=== PATIENT | female | born 1960 | race Caucasian/White ===

== ENCOUNTER 2024-03-24 08:42 | Inpatient (IN) | payer MEDICARE, MEDICAID ==
[~2024-03-24] VITALS: Ht 162.6 cm; Wt 141.6 kg
[2024-03-24 10:09] LABS: BASOPHILS % (AUTO) 0.5 % (0-1); EOSINOPHILS # (AUTO) 0.2 X10'3 (0-0.9); EOSINOPHILS % (AUTO) 1.9 % (0-6); HEMOGLOBIN 8.3 g/dl (12.0-16.0); LYMPHOCYTES # (AUTO) 1.9 X10'3 (1.1-4.8); LYMPHOCYTES % (AUTO) 22.7 % (21-51); MEAN CORPUSCULAR HGB CONC 30.7 g/dL (33.0-36.5); MEAN CORPUSCULAR VOLUME 81.4 FL (78-98); MEAN PLATELET VOLUME 8.3 FL (7.4-10.4); MONOCYTES # (AUTO) 0.6 X10'3 (0-0.9); MONOCYTES % (AUTO) 7.3 % (2-12); NEUTROPHILS # (AUTO) 5.7 X10'3 (1.8-7.7); NEUTROPHILS % (AUTO) 67.6 % (42-75); PLATELET COUNT 205 X10'3 (140-440); RED BLOOD COUNT 3.32 X10'6 (4.20-5.60); RED CELL DISTRIBUTION WIDTH 24.9 % (11.5-14.5); WHITE BLOOD COUNT 8.5 X10'3 (4.5-11.0)
[2024-03-24 10:23] LABS: HYPOCHROMASIA 1+; PLATELET ESTIMATE NORMAL
[2024-03-24 10:24] LABS: ANISOCYTOSIS 3+; POLYCHROMASIA 1+; TEAR DROP CELLS FEW
[2024-03-24 10:25] LABS: ELLIPTOCYTES 1+; SCHISTOCYTES FEW; STOMATOCYTES 1+
[2024-03-24 10:38] LABS: APTT 25 SECONDS (22-32); D-DIMER 0.99 MG/L FEU (0-0.50); INR 1.2 INR; PROTHROMBIN TIME 12.7 SECONDS (9.0-12.0)
[2024-03-24 10:47] LABS: ALBUMIN 2.3 G/DL (3.4-5.0); ANION GAP 9 (8-16); BLOOD UREA NITROGEN 13 MG/DL (7-18); BUN/CREATININE RATIO 10.9 (10.0-20.0); CALCIUM 7.5 MG/DL (8.5-10.1); CHLORIDE 105 MMOL/L (99-107); CREATININE 1.19 MG/DL (0.40-0.90); GLUCOSE 158 MG/DL (70-104); MAGNESIUM 1.6 MG/DL (1.5-2.4); PRO BRAIN NATRIURETIC PEPTIDE 1274 PG/ML (0-125); SODIUM 138 MMOL/L (135-145); TOTAL CARBON DIOXIDE 24.1 MMOL/L (24-32); eCRCL 40 ML/MIN; eGFR 45 ML/MIN
[2024-03-24] MEDS: potassium bicarbonate/cit acid 25mEq tablet.effervescent PO ONE (12:06)
[2024-03-24] MEDS ORDERED: tranexamic acid inj. 1,000 MG in normal saline 100ml IV soln 90 ML IV ONE (12:10)
[2024-03-24] MEDS: tranexamic acid 1gm/0.7% sal. 100 ML IV ONE (13:32)
[2024-03-24] MEDS: magnesium sulf-water 2g/50mL 50 ML IV ONE (13:32)
[2024-03-24 14:06] LABS: HEMATOCRIT 26.9 % (35.0-45.0); HEMOGLOBIN 8.2 g/dl (12.0-16.0); MEAN CORPUSCULAR HEMOGLOBIN 25.4 PG (27.0-31.0); MEAN CORPUSCULAR HGB CONC 30.6 g/dL (33.0-36.5); MEAN PLATELET VOLUME 8.6 FL (7.4-10.4); PLATELET COUNT 214 X10'3 (140-440); RED BLOOD COUNT 3.24 X10'6 (4.20-5.60); RED CELL DISTRIBUTION WIDTH 24.9 % (11.5-14.5); WHITE BLOOD COUNT 9.2 X10'3 (4.5-11.0)
[2024-03-24] MEDS: ipratropium/albuterol 3ml nebule NEB ONE (14:40)
[2024-03-24 14:41] VITALS: PULSE 89; RESP 20; O2SAT 99
[2024-03-24 14:47] VITALS: PULSE 91; RESP 20; O2SAT 100
[2024-03-24] MEDS: methylPREDNISolone sod succ 125mg/2ml vial IV ONE (15:43)
[2024-03-24] MEDS ORDERED: acetaminophen 325mg tablet PO PRN (16:15)
[2024-03-24] MEDS ORDERED: mag hydrox/Alum hydrox/simeth 30ml oral suspension PO PRN (16:15)
[2024-03-24] MEDS ORDERED: magnesium hydroxide 30ml (MOM) UD suspension PO PRN (16:15)
[2024-03-24] MEDS ORDERED: ondansetron/PF 4mg/2ml inj IV PRN (16:15)
[2024-03-24] MEDS: doxycycline inj 100 MG in normal saline 100ml IV soln 100 ML IV ONE (16:32)
[2024-03-24] MEDS: docusate sod 100mg capsule PO SCH (19:35)
[2024-03-24 22:11] VITALS: PULSE 89; RESP 21; O2SAT 96
[2024-03-25] VITALS (8 sets, daily range): BP systolic 134–160; BP diastolic 54–68; PULSE 80–104; RESP 16–33; TEMP 97; O2SAT 94–99
[2024-03-25] MEDS ORDERED: CHOL500050 PO (01:40)
[2024-03-25] MEDS ORDERED: FERR325T29 PO (01:40)
[2024-03-25] MEDS ORDERED: POTA-207 PO (01:40)
[2024-03-25] MEDS ORDERED: METF-438 PO (01:40)
[2024-03-25] MEDS ORDERED: NITR0.4T48 SL (01:40)
[2024-03-25] MEDS ORDERED: SERT-434 PO (01:40)
[2024-03-25] MEDS ORDERED: FURO40TA4 PO (01:40)
[2024-03-25] MEDS ORDERED: PRAV20TA4 PO (01:40)
[2024-03-25] MEDS ORDERED: BIMA2.5D EACHEYE (01:40)
[2024-03-25] MEDS ORDERED: METO50TA16 PO (01:40)
[2024-03-25] MEDS ORDERED: AMLO-708 PO (01:40)
[2024-03-25] MEDS ORDERED: DOCU100C40 PO (01:40)
[2024-03-25] MEDS ORDERED: LOSA100T58 PO (01:40)
[2024-03-25] MEDS ORDERED: CYAN500T71 (01:46)
[2024-03-25] MEDS ORDERED: OMEG-270 PO (01:46)
[2024-03-25] MEDS ORDERED: FOLI1TAB27 PO (01:46)
[2024-03-25] MEDS ORDERED: DICL20GE (01:46)
[2024-03-25] MEDS ORDERED: PANT40TA54 PO (01:46)
[2024-03-25] MEDS ORDERED: LANTUS SQ (01:48)
[2024-03-25 02:28] LABS: BASOPHILS % (AUTO) 0.1 % (0-1); EOSINOPHILS % (AUTO) 0 % (0-6); HEMATOCRIT 26.4 % (35.0-45.0); LYMPHOCYTES # (AUTO) 0.7 X10'3 (1.1-4.8); LYMPHOCYTES % (AUTO) 7.2 % (21-51); MEAN CORPUSCULAR HEMOGLOBIN 24.8 PG (27.0-31.0); MEAN CORPUSCULAR HGB CONC 30.4 g/dL (33.0-36.5); MEAN CORPUSCULAR VOLUME 81.8 FL (78-98); MEAN PLATELET VOLUME 8.4 FL (7.4-10.4); MONOCYTES # (AUTO) 0.2 X10'3 (0-0.9); MONOCYTES % (AUTO) 2.6 % (2-12); NEUTROPHILS # (AUTO) 8.5 X10'3 (1.8-7.7); NEUTROPHILS % (AUTO) 90.1 % (42-75); PLATELET COUNT 270 X10'3 (140-440); RED BLOOD COUNT 3.22 X10'6 (4.20-5.60); RED CELL DISTRIBUTION WIDTH 24.7 % (11.5-14.5); WHITE BLOOD COUNT 9.4 X10'3 (4.5-11.0)
[2024-03-25 02:46] LABS: ALBUMIN 2.3 G/DL (3.4-5.0); ANION GAP 10 (8-16); BLOOD UREA NITROGEN 16 MG/DL (7-18); BUN/CREATININE RATIO 14.5 (10.0-20.0); CALCIUM 7.4 MG/DL (8.5-10.1); CHLORIDE 102 MMOL/L (99-107); GLUCOSE 283 MG/DL (70-104); POTASSIUM 3.9 MMOL/L (3.5-5.1); SODIUM 135 MMOL/L (135-145); TOTAL CARBON DIOXIDE 22.6 MMOL/L (24-32); eCRCL 43 ML/MIN; eGFR 50 ML/MIN
[2024-03-25] MEDS: acetaminophen 325mg tablet PO PRN (09:01)
[2024-03-25] MEDS ORDERED: furosemide 40mg tablet PO SCH (11:50)
[2024-03-25] MEDS ORDERED: docusate sod 100mg capsule PO PRN (11:50)
[2024-03-25] MEDS ORDERED: nitroGLYCERIN 0.4mg SUBLingual tab SL PRN (11:50)
[2024-03-25] MEDS: traMADol 50MG tablet PO PRN ×2 (12:12→17:34)
[2024-03-25] MEDS: traMADol 50MG tablet PO ONE (13:31)
[2024-03-25 14:35] LABS: BASOPHILS % (AUTO) 0.1 % (0-1); EOSINOPHILS % (AUTO) 0 % (0-6); HEMOGLOBIN 8.3 g/dl (12.0-16.0); LYMPHOCYTES # (AUTO) 1.5 X10'3 (1.1-4.8); MEAN CORPUSCULAR HEMOGLOBIN 24.9 PG (27.0-31.0); MEAN CORPUSCULAR HGB CONC 30.7 g/dL (33.0-36.5); MEAN CORPUSCULAR VOLUME 81.1 FL (78-98); MEAN PLATELET VOLUME 8.1 FL (7.4-10.4); MONOCYTES # (AUTO) 1.7 X10'3 (0-0.9); NEUTROPHILS # (AUTO) 13.9 X10'3 (1.8-7.7); NEUTROPHILS % (AUTO) 80.9 % (42-75); PLATELET COUNT 341 X10'3 (140-440); RED BLOOD COUNT 3.32 X10'6 (4.20-5.60); RED CELL DISTRIBUTION WIDTH 24.6 % (11.5-14.5); WHITE BLOOD COUNT 17.2 X10'3 (4.5-11.0)
[2024-03-25 14:55] LABS: PLATELET ESTIMATE NORMAL
[2024-03-25 14:56] LABS: ANISOCYTOSIS 3+; ELLIPTOCYTES 1+; HYPOCHROMASIA 1+; STOMATOCYTES FEW
[2024-03-25 14:57] LABS: SCHISTOCYTES FEW
[2024-03-25] MEDS ORDERED: ipratropium/albuterol 3ml nebule NEB PRN (18:10)
[2024-03-25] MEDS: OMEGA-3/DHA/EPA/FISH OIL 1 EACH CAPSULE.DR PO SCH (20:35)
[2024-03-25] MEDS: pantoprazole 40mg Tablet.DR PO SCH (20:36)
[2024-03-25] MEDS: ferrous sulfate 325mg tablet PO SCH (20:36)
[2024-03-25] MEDS: metoprolol tartrate 50mg tablet PO SCH (20:36)
[2024-03-25] MEDS: guaiFENesin ER 600mg tablet PO SCH (20:36)
[2024-03-25] MEDS: insulin glargine (Lantus) pen - multi-dose SQ SCH (22:39)
[2024-03-26] VITALS (12 sets, daily range): BP systolic 98–150; BP diastolic 46–68; PULSE 82–104; RESP 14–24; TEMP 96.8–97.9; O2SAT 91–98
[2024-03-26 06:06] LABS: BASOPHILS % (AUTO) 0.2 % (0-1); EOSINOPHILS # (AUTO) 0.1 X10'3 (0-0.9); EOSINOPHILS % (AUTO) 0.5 % (0-6); HEMATOCRIT 25.2 % (35.0-45.0); HEMOGLOBIN 7.7 g/dl (12.0-16.0); LYMPHOCYTES # (AUTO) 1.2 X10'3 (1.1-4.8); LYMPHOCYTES % (AUTO) 9.5 % (21-51); MEAN CORPUSCULAR HGB CONC 30.5 g/dL (33.0-36.5); MONOCYTES % (AUTO) 8.2 % (2-12); NEUTROPHILS # (AUTO) 10.2 X10'3 (1.8-7.7); NEUTROPHILS % (AUTO) 81.6 % (42-75); PLATELET COUNT 305 X10'3 (140-440); RED BLOOD COUNT 3.08 X10'6 (4.20-5.60); RED CELL DISTRIBUTION WIDTH 24.6 % (11.5-14.5); WHITE BLOOD COUNT 12.6 X10'3 (4.5-11.0)
[2024-03-26 06:22] LABS: ALBUMIN 2.2 G/DL (3.4-5.0); ANION GAP 10 (8-16); BLOOD UREA NITROGEN 21 MG/DL (7-18); BUN/CREATININE RATIO 18.4 (10.0-20.0); CHLORIDE 104 MMOL/L (99-107); CREATININE 1.14 MG/DL (0.40-0.90); GLUCOSE 138 MG/DL (70-104); POTASSIUM 3.4 MMOL/L (3.5-5.1); SODIUM 139 MMOL/L (135-145); TOTAL CARBON DIOXIDE 25.4 MMOL/L (24-32); eCRCL 42 ML/MIN; eGFR 48 ML/MIN
[2024-03-26] MEDS: EYE EACHEYE SCH (08:00)
[2024-03-26] MEDS: BIMATOPROST EACHEYE SCH (08:00)
[2024-03-26] MEDS: furosemide 40mg/4ml inj IV ONE (08:20)
[2024-03-26] MEDS: losartan 50mg tablet PO SCH (08:24)
[2024-03-26] MEDS: potassium Cl 20 mEq SR tablet PO SCH (08:25)
[2024-03-26] MEDS: folic acid 1mg tablet PO SCH (08:25)
[2024-03-26] MEDS: atorvastatin 10mg tablet PO SCH (08:26)
[2024-03-26] MEDS: amLODIPine 5mg tablet PO SCH (08:27)
[2024-03-26] MEDS: cholecalciferol (vitamin D3) 1,000 unit (25mcg) tablet PO SCH (08:27)
[2024-03-26] MEDS: sertraline 50mg tablet PO SCH (08:28)
[2024-03-26] MEDS: insulin glargine (Lantus) pen - multi-dose SQ ONE (09:24)
[2024-03-26] MEDS: lactose-reduced food (Ensure Enlive) - 237ml bottle PO SCH (13:00)
[2024-03-26 14:47] LABS: BASOPHILS % (AUTO) 0.2 % (0-1); EOSINOPHILS # (AUTO) 0.1 X10'3 (0-0.9); EOSINOPHILS % (AUTO) 0.7 % (0-6); HEMATOCRIT 26.7 % (35.0-45.0); HEMOGLOBIN 8.1 g/dl (12.0-16.0); LYMPHOCYTES # (AUTO) 1.6 X10'3 (1.1-4.8); LYMPHOCYTES % (AUTO) 9.5 % (21-51); MEAN CORPUSCULAR HEMOGLOBIN 24.7 PG (27.0-31.0); MEAN CORPUSCULAR HGB CONC 30.5 g/dL (33.0-36.5); MEAN CORPUSCULAR VOLUME 81.1 FL (78-98); MONOCYTES # (AUTO) 1.2 X10'3 (0-0.9); MONOCYTES % (AUTO) 7.6 % (2-12); NEUTROPHILS # (AUTO) 13.5 X10'3 (1.8-7.7); PLATELET COUNT 381 X10'3 (140-440); RED BLOOD COUNT 3.29 X10'6 (4.20-5.60); RED CELL DISTRIBUTION WIDTH 25.6 % (11.5-14.5); WHITE BLOOD COUNT 16.4 X10'3 (4.5-11.0)
[2024-03-26 15:07] LABS: ANISOCYTOSIS 3+; ELLIPTOCYTES FEW; MICROCYTOSIS 1+; PLATELET ESTIMATE NORMAL; POIKILOCYTOSIS FEW; TARGET CELLS FEW
[2024-03-27] VITALS (15 sets, daily range): BP systolic 93–136; BP diastolic 41–62; PULSE 75–94; RESP 14–22; TEMP 97.3–98.1; O2SAT 93–100
[2024-03-27 07:43] LABS: BASOPHILS % (AUTO) 0.4 % (0-1); EOSINOPHILS # (AUTO) 0.2 X10'3 (0-0.9); HEMOGLOBIN 7.8 g/dl (12.0-16.0)
[2024-03-27 07:44] LABS: EOSINOPHILS % (AUTO) 1.5 % (0-6); HEMATOCRIT 25.5 % (35.0-45.0); LYMPHOCYTES # (AUTO) 1.3 X10'3 (1.1-4.8); LYMPHOCYTES % (AUTO) 10.4 % (21-51); MEAN CORPUSCULAR HEMOGLOBIN 24.9 PG (27.0-31.0); MEAN CORPUSCULAR HGB CONC 30.5 g/dL (33.0-36.5); MEAN CORPUSCULAR VOLUME 81.6 FL (78-98); MONOCYTES # (AUTO) 1.3 X10'3 (0-0.9); MONOCYTES % (AUTO) 10.3 % (2-12); NEUTROPHILS # (AUTO) 9.5 X10'3 (1.8-7.7); NEUTROPHILS % (AUTO) 77.4 % (42-75); PLATELET COUNT 331 X10'3 (140-440); RED BLOOD COUNT 3.12 X10'6 (4.20-5.60); WHITE BLOOD COUNT 12.3 X10'3 (4.5-11.0)
[2024-03-27 07:50] LABS: ALBUMIN 2.1 G/DL (3.4-5.0); ANION GAP 6 (8-16); BLOOD UREA NITROGEN 21 MG/DL (7-18); BUN/CREATININE RATIO 22.6 (10.0-20.0); CALCIUM 7.9 MG/DL (8.5-10.1); CHLORIDE 107 MMOL/L (99-107); CREATININE 0.93 MG/DL (0.40-0.90); GLUCOSE 82 MG/DL (70-104); POTASSIUM 3.8 MMOL/L (3.5-5.1); SODIUM 141 MMOL/L (135-145); eCRCL 51 ML/MIN; eGFR 60 ML/MIN
[2024-03-27 09:14] LABS: ANISOCYTOSIS 3+; ELLIPTOCYTES FEW; HYPOCHROMASIA 1+; PLATELET ESTIMATE NORMAL; POLYCHROMASIA 1+; TARGET CELLS FEW; TEAR DROP CELLS FEW
[2024-03-27 09:15] LABS: SCHISTOCYTES FEW
[2024-03-27] MEDS: nystatin 15 GM powder TP SCH (12:35)
[2024-03-28 03:36] VITALS: RESP 21
[2024-03-28 06:00] VITALS: BP 123/60; PULSE 75; RESP 20; TEMP 97.4; O2SAT 100
[2024-03-28 06:13] LABS: BASOPHILS # (AUTO) 0.1 X10'3 (0-0.2); BASOPHILS % (AUTO) 0.7 % (0-1); EOSINOPHILS # (AUTO) 0.2 X10'3 (0-0.9); EOSINOPHILS % (AUTO) 2.4 % (0-6); HEMOGLOBIN 7.5 g/dl (12.0-16.0); LYMPHOCYTES % (AUTO) 10.7 % (21-51); MEAN CORPUSCULAR HEMOGLOBIN 25.8 PG (27.0-31.0); MEAN CORPUSCULAR HGB CONC 31.5 g/dL (33.0-36.5); MEAN CORPUSCULAR VOLUME 81.9 FL (78-98); MEAN PLATELET VOLUME 8.1 FL (7.4-10.4); NEUTROPHILS # (AUTO) 7.1 X10'3 (1.8-7.7); NEUTROPHILS % (AUTO) 75.2 % (42-75); PLATELET COUNT 315 X10'3 (140-440); RED BLOOD COUNT 2.93 X10'6 (4.20-5.60); RED CELL DISTRIBUTION WIDTH 24.3 % (11.5-14.5); WHITE BLOOD COUNT 9.5 X10'3 (4.5-11.0)
[2024-03-28 06:29] LABS: ALBUMIN 1.8 G/DL (3.4-5.0); ANION GAP 8 (8-16); BLOOD UREA NITROGEN 28 MG/DL (7-18); BUN/CREATININE RATIO 23.1 (10.0-20.0); CALCIUM 7.8 MG/DL (8.5-10.1); CHLORIDE 105 MMOL/L (99-107); CREATININE 1.21 MG/DL (0.40-0.90); GLUCOSE 112 MG/DL (70-104); SODIUM 136 MMOL/L (135-145); TOTAL CARBON DIOXIDE 23.2 MMOL/L (24-32); eCRCL 39 ML/MIN; eGFR 45 ML/MIN
[2024-03-28 06:34] LABS: POTASSIUM 4.1 MMOL/L (3.5-5.1)
[2024-03-28 07:35] VITALS: RESP 16; O2SAT 100
[2024-03-28 10:15] VITALS: RESP 20
[2024-03-28 10:25] VITALS: PULSE 83
== END 2024-03-28 15:36 | disposition home health service (06) | DRG 377 ==
LOC: ER 08:43 → ED HOLD 16:13 → ORTHO 4S 03-25 11:40 → UNDODISIN 03-28 15:36
PROVIDERS: ADMIT Internal Medicine; ATTEND Internal Medicine
PROC: 5A09357 Assistance with Respiratory Ventilation, Less than 24 Consecutive Hours, Continuous Positive Airway Pressure (ICD-10-PCS; 2024-03-24)
PROC: 5A09357 Assistance with Respiratory Ventilation, Less than 24 Consecutive Hours, Continuous Positive Airway Pressure (ICD-10-PCS; principal; 2024-03-25)
PROC: 5A09357 Assistance with Respiratory Ventilation, Less than 24 Consecutive Hours, Continuous Positive Airway Pressure (ICD-10-PCS; 2024-03-26)
PROC: 5A09357 Assistance with Respiratory Ventilation, Less than 24 Consecutive Hours, Continuous Positive Airway Pressure (ICD-10-PCS; 2024-03-27)
PROC: 5A09357 Assistance with Respiratory Ventilation, Less than 24 Consecutive Hours, Continuous Positive Airway Pressure (ICD-10-PCS; 2024-03-28)
DX: K92.2 Gastrointestinal hemorrhage, unspecified (principal); E43 Unspecified severe protein-calorie malnutrition; D62 Acute posthemorrhagic anemia; J44.1 Chronic obstructive pulmonary disease with (acute) exacerbation; Z68.43 Body mass index [BMI] 50.0-59.9, adult; E66.01 Morbid (severe) obesity due to excess calories; Z20.822 Contact with and (suspected) exposure to COVID-19; E11.9 Type 2 diabetes mellitus without complications; G47.33 Obstructive sleep apnea (adult) (pediatric); I11.0 Hypertensive heart disease with heart failure; I25.10 Atherosclerotic heart disease of native coronary artery without angina pectoris; F32.A Depression, unspecified; G89.29 Other chronic pain; I50.9 Heart failure, unspecified; I48.0 Paroxysmal atrial fibrillation; M06.9 Rheumatoid arthritis, unspecified; Z79.4 Long term (current) use of insulin; Z79.899 Other long term (current) drug therapy; Z82.3 Family history of stroke; Z88.5 Allergy status to narcotic agent; Z90.49 Acquired absence of other specified parts of digestive tract; Z79.01 Long term (current) use of anticoagulants; Z88.1 Allergy status to other antibiotic agents
CPT/HCPCS: 36415; 71045; 80048; 82948; 83036; 83735; 83880; 84484; 85008; 85025; 85027; 85379; 85610; 85730; 87081; 87502; 87503; 87811; 94640; 94660; 94760; 99285; A6258; G0378; J1815; J2919; J3490